=== PATIENT | male | born 1985 | race African-American/Black ===

== ENCOUNTER 2023-01-27 00:36 | Emergency (ER) | payer BC, OTHER ==
[~2023-01-27] VITALS: Ht 182.9 cm; Wt 90.0 kg
[2023-01-27 00:59] VITALS: BP 104/80
[2023-01-27 01:58] LABS: CLARITY URINE CLOUDY (CLEAR); COLOR URINE YELLOW (YELLOW); KETONES URINE NEGATIVE (NEGATIVE); LEUKOCYTE ESTERASE URINE 1+ (NEGATIVE); NITRITE URINE NEGATIVE (NEGATIVE); OCCULT BLOOD URINE NEGATIVE (NEGATIVE); PH URINE 6.5 (4.5-8.0); PROTEIN URINE NEGATIVE (NEGATIVE)
[2023-01-27] MEDS ORDERED: METR-167 PO (02:04)
[2023-01-27] MEDS ORDERED: DOXY100T28 MT (02:11)
== END 2023-01-27 02:17 | disposition home or self-care (01) ==
LOC: ER 00:36
DX: N34.2 Other urethritis (principal)
CPT/HCPCS: 81003; 99283